=== PATIENT | female | born 1985 | race African-American/Black ===

== ENCOUNTER → 2016-11-12 | Outpatient (CLI) | payer OTHER ==
[~2016-11-12] MED LIST: ANTIVERT/2525 M1 PO; AUGMENTIN 875 M1 TAB PO; CLARITIN10 MG PO; MACROBID100 M1 PO; MOTRIN 800 MG E4 TAB PO; MOTRIN800 MG PO; NKHM PO; OMNICEF300 MG PO; PENICILLIN VK500 MG PO; PRENATAL1 TA3 PO; ULTRAM50 MG PO
== END | disposition home or self-care (01) ==
LOC: US 10:13
DX: Z34.80 Encounter for supervision of other normal pregnancy, unspecified trimester (principal); Z3A.00 Weeks of gestation of pregnancy not specified

== ENCOUNTER → 2017-06-04 | Outpatient (CLI) | payer OTHER ==
--- NOTE | ~2017-06-04 | WRIGHTHP ---
[place], [place] PATIENT HISTORY AND PHYSICAL EXAM NAME: JOSE CARVAJAL [facility] #: [id number] UNIT #: [id number] ROOM: DOCTOR: MARGAUX GAO MD BIRTHDATE: [birth year] DOS: 06/09/2017 DATE OF SURGERY: 06/09/2017. HISTORY OF PRESENT ILLNESS: This is a 32-year-old -[place] female 6, para 5, AB 1, who last delivered on 05/07/2017 in [place] who presented on 05/28/2017, desiring bilateral tubal banding. The patient had signed her 30-day papers at the very end of December and really wants to get proceed with having this done for safety sake and before her children go back to school. Apparently, I performed a bilateral tubal banding on her sister, and her sister done very well, and the patient wants to have the same thing. She does not want a bilateral salpingectomy recommended by [employer] and was fine with that decision. Risks and benefits, indications, potential complications, and alternatives of a laparoscopic bilateral tubal banding were given, understanding stated and the consent signed. PAST MEDICAL HISTORY: Reveals 6 pregnancies and 5 deliveries, 1 and 4 vaginal deliveries as well as one spontaneous . She has history of anxiety, chronic fatigue syndrome and heart palpitations. She has had a history of tubes placed within her ears and . SOCIAL HISTORY: She does not smoke and drinks only socially. ALLERGIES: She has no known allergies. MEDICATIONS: She is taking no medications on a consistent basis. REVIEW OF SYSTEMS: Stable. FAMILY HISTORY: Reveals her father with diabetes. Her mother with hypertension and heart disease. PHYSICAL EXAMINATION: GENERAL: Reveals a delightful female, 5 feet 7, 213 pounds, BMI is 33.4, O2 sat 99%. VITAL SIGNS: Her blood pressure is 134/87. HEENT: Grossly intact. NECK: Grossly intact. LUNGS: Grossly intact. CARDIAC: Grossly intact. BREASTS: Grossly intact. ABDOMEN: Grossly intact. EXTREMITIES: Grossly intact. NEUROLOGIC: Grossly intact. GENITOURINARY: External genitalia, vagina, cervix normal. Most recent Pap negative. Uterus is anteverted and anteflexed. Normal size, configuration, nontender, and mobile. Adnexa negative. RECTAL: Deferred. ASSESSMENT: The patient who desires fertility determination and to that end on [place], [place] PATIENT HISTORY AND PHYSICAL EXAM NAME: JOSE CARVAJAL UNIT #: [id number] ROOM: DOCTOR: MARGAUX GAO MD BIRTHDATE: [birth year] 06/09/2017, she will undergo laparoscopic bilateral tubal banding. MARGAUX GAO MD CM:HISPHYS:PATIENT HISTORY AND PHYSICAL EXAMINATION [id number] MARGAUX GAO MD 06/04/17 1500 interface
[2017-06-04 12:06] LABS: BASO % 0.3 % (0.0-1.0); EOS # 0.1 10*3/uL (0.0-0.4); EOS % 0.7 % (1.0-4.0); HEMATOCRIT 39.6 % (37.0-47.0); HEMOGLOBIN 13.5 g/dl (12.0-16.0); LYMPH # 2.9 10*3/uL (1.3-4.4); LYMPH % 40.3 % (27.0-41.0); MEAN CORPUSCULAR HGB CONC 34.1 g/dl (33.0-37.0); MEAN PLATELET VOLUME 10.8 fl (9.6-12.3); MONO # 0.4 10*3/uL (0.1-1.0); MONO % 5.8 % (3.0-9.0); NEUT # 3.8 10*3/uL (2.3-7.9); NEUT % 52.5 % (47.0-73.0); PLATELET COUNT AUTOMATED 213 10*3/uL (130-400); RED BLOOD COUNT 4.35 10*6/uL (4.10-5.10); RED CELL DISTRI WIDTH 13.1 % (0-14.5); WHITE BLOOD COUNT 7.2 10*3/uL (4.8-10.8)
== END | disposition home or self-care (01) ==
LOC: SDC 11:00 → LAB 13:53 → SDC 06-09 00:51 → EDSTATUS 06-09 11:00 → SDC 06-09 11:00
PROVIDERS: Obstetrics & Gynecology
DX: Z30.09 Encounter for other general counseling and advice on contraception (principal); R79.89 Other specified abnormal findings of blood chemistry

== ENCOUNTER 2017-08-04 12:19 | Emergency (ER) | payer OTHER ==
[~2017-08-04] VITALS: Ht 170.1 cm; Wt 94.3 kg
[2017-08-04] MEDS ORDERED: MAGNESIUM250 M2 PO (12:31)
[2017-08-04] MEDS ORDERED: B12,B-12,B 12500 MC1 PO (12:33)
[2017-08-04 12:57] LABS: BASO % 0.2 % (0.0-1.0); EOS # 0.1 10*3/uL (0.0-0.4); EOS % 1.3 % (1.0-4.0); HEMATOCRIT 40.3 % (37.0-47.0); LYMPH % 32.2 % (27.0-41.0); MEAN CORPUSCULAR HGB 30.2 pg (27.0-31.0); MEAN CORPUSCULAR HGB CONC 34.7 g/dl (33.0-37.0); MEAN PLATELET VOLUME 10.6 fl (9.6-12.3); MONO # 0.3 10*3/uL (0.1-1.0); MONO % 4.3 % (3.0-9.0); NEUT # 3.9 10*3/uL (2.3-7.9); NEUT % 61.8 % (47.0-73.0); PLATELET COUNT AUTOMATED 199 10*3/uL (130-400); RED BLOOD COUNT 4.63 10*6/uL (4.10-5.10); RED CELL DISTRI WIDTH 11.9 % (0-14.5); WHITE BLOOD COUNT 6.3 10*3/uL (4.8-10.8)
[2017-08-04 13:12] LABS: ALBUMIN 3.6 gm/dl (3.1-4.5); ALKALINE PHOSPHATASE 51 U/L (45-117); BUN 9 mg/dl (7-24); CHLORIDE 109 mmol/L (98-107); CREATININE 0.84 mg/dL (0.55-1.02); LIPASE 93 U/L (73-393); POTASSIUM 3.5 mmol/L (3.5-5.1); SGOT/AST 15 IU/L (3-35); SGPT/ALT 24 U/L (12-78); SODIUM 141 mmol/L (136-145); TOTAL PROTEIN 7.3 gm/dL (6.4-8.2)
== END 2017-08-04 15:29 | disposition home or self-care (01) ==
LOC: ED 12:19
PROVIDERS: Physician Assistant
DX: B34.9 Viral infection, unspecified (principal); Z98.890 Other specified postprocedural states

== ENCOUNTER 2017-08-31 11:54 | Emergency (ER) | payer OTHER ==
[~2017-08-31 11:54] MED LIST changes: +B12,B-12,B 12500 MC1 PO; +MAGNESIUM250 M2 PO
[2017-08-31 12:20] LABS: BILIRUBIN NEGATIVE (NEGATIVE); BLOOD TRACE-LYSED (NEGATIVE); CLARITY CLEAR (CLEAR); COLOR YELLOW (YELLOW); GLUCOSE NEGATIVE (NEGATIVE); KETONE NEGATIVE (NEGATIVE); LEUKO ESTERASE NEGATIVE (NEGATIVE); NITRITE NEGATIVE (NEGATIVE); UROBILINOGEN 0.2 E.U./dl (0.2-1.0)
[2017-08-31 12:26] LABS: BASO % 0.4 % (0.0-1.0); EOS % 0.4 % (1.0-4.0); HEMATOCRIT 38.8 % (37.0-47.0); HEMOGLOBIN 13.3 g/dl (12.0-16.0); LYMPH % 36.2 % (27.0-41.0); MEAN CORPUSCULAR HGB 29.5 pg (27.0-31.0); MEAN CORPUSCULAR HGB CONC 34.3 g/dl (33.0-37.0); MEAN PLATELET VOLUME 10.5 fl (9.6-12.3); MONO # 0.3 10*3/uL (0.1-1.0); MONO % 6.2 % (3.0-9.0); NEUT # 3.1 10*3/uL (2.3-7.9); NEUT % 56.6 % (47.0-73.0); PLATELET COUNT AUTOMATED 178 10*3/uL (130-400); RED BLOOD COUNT 4.51 10*6/uL (4.10-5.10); RED CELL DISTRI WIDTH 11.8 % (0-14.5); WHITE BLOOD COUNT 5.5 10*3/uL (4.8-10.8)
[2017-08-31 12:28] LABS: BACTERIA TRACE; RBC 0-2 rbc/hpf (0-2); WBC 0-2 wbc/hpf (0-5)
[2017-08-31 12:43] LABS: ALBUMIN 3.5 gm/dl (3.1-4.5); ALKALINE PHOSPHATASE 45 U/L (45-117); BUN 7 mg/dl (7-24); CHLORIDE 110 mmol/L (98-107); LIPASE 92 U/L (73-393); POTASSIUM 3.4 mmol/L (3.5-5.1); SGOT/AST 12 IU/L (3-35); SGPT/ALT 22 U/L (12-78); SODIUM 142 mmol/L (136-145); TOTAL PROTEIN 6.8 gm/dL (6.4-8.2)
[2017-08-31 12:54] LABS: BETA-HCG, QUANT < 1.0 mIU/mL (1-3)
[2017-08-31] MEDS ORDERED: Zofran4 MG SL (13:21)
== END 2017-08-31 13:40 | disposition home or self-care (01) ==
LOC: ED 11:54
PROVIDERS: Student in an Organized Health Care Education/Training Program
DX: R11.2 Nausea with vomiting, unspecified (principal); Z98.890 Other specified postprocedural states; Z79.899 Other long term (current) drug therapy

== ENCOUNTER 2017-09-02 09:27 | Emergency (ER) | payer OTHER ==
[~2017-09-02] VITALS: Ht 170.1 cm; Wt 79.4 kg
[~2017-09-02 09:27] MED LIST changes: +Zofran4 MG SL
[2017-09-02 10:26] LABS: BASO % 0.4 % (0.0-1.0); EOS % 0.5 % (1.0-4.0); HEMATOCRIT 39.5 % (37.0-47.0); HEMOGLOBIN 13.6 g/dl (12.0-16.0); LYMPH % 35.7 % (27.0-41.0); MEAN CORPUSCULAR HGB 30.3 pg (27.0-31.0); MEAN CORPUSCULAR HGB CONC 34.4 g/dl (33.0-37.0); MEAN PLATELET VOLUME 10.6 fl (9.6-12.3); MONO # 0.3 10*3/uL (0.1-1.0); MONO % 5.2 % (3.0-9.0); NEUT # 3.2 10*3/uL (2.3-7.9); PLATELET COUNT AUTOMATED 178 10*3/uL (130-400); RED BLOOD COUNT 4.49 10*6/uL (4.10-5.10); RED CELL DISTRI WIDTH 11.9 % (0-14.5); WHITE BLOOD COUNT 5.6 10*3/uL (4.8-10.8)
[2017-09-02 10:43] LABS: ALBUMIN 3.6 gm/dl (3.1-4.5); ALKALINE PHOSPHATASE 47 U/L (45-117); BUN 7 mg/dl (7-24); CHLORIDE 109 mmol/L (98-107); CREATININE 0.88 mg/dL (0.55-1.02); POTASSIUM 3.7 mmol/L (3.5-5.1); SGOT/AST 14 IU/L (3-35); SGPT/ALT 26 U/L (12-78); SODIUM 143 mmol/L (136-145)
[2017-09-02] MEDS ORDERED: VISTARIL25 MG PO (10:57)
== END 2017-09-02 11:26 | disposition home or self-care (01) ==
LOC: ED 09:27
PROVIDERS: Nurse Practitioner Family
DX: F41.9 Anxiety disorder, unspecified (principal); Z98.890 Other specified postprocedural states; Z79.899 Other long term (current) drug therapy

== ENCOUNTER 2017-09-05 11:55 | Emergency (ER) | payer OTHER ==
[~2017-09-05] VITALS: Ht 170.1 cm; Wt 94.3 kg
[~2017-09-05 11:55] MED LIST changes: +VISTARIL25 MG PO
[2017-09-05 12:28] LABS: BASO % 0.3 % (0.0-1.0); EOS % 0.3 % (1.0-4.0); HEMATOCRIT 41.9 % (37.0-47.0); HEMOGLOBIN 14.5 g/dl (12.0-16.0); LYMPH # 2.5 10*3/uL (1.3-4.4); LYMPH % 31.6 % (27.0-41.0); MEAN CELL VOLUME 87.1 fl (81.0-99.0); MEAN CORPUSCULAR HGB 30.1 pg (27.0-31.0); MEAN CORPUSCULAR HGB CONC 34.6 g/dl (33.0-37.0); MEAN PLATELET VOLUME 11.1 fl (9.6-12.3); MONO # 0.4 10*3/uL (0.1-1.0); NEUT # 4.9 10*3/uL (2.3-7.9); NEUT % 62.7 % (47.0-73.0); PLATELET COUNT AUTOMATED 201 10*3/uL (130-400); RED BLOOD COUNT 4.81 10*6/uL (4.10-5.10); WHITE BLOOD COUNT 7.8 10*3/uL (4.8-10.8)
[2017-09-05 12:48] LABS: ALBUMIN 3.9 gm/dl (3.1-4.5); ALKALINE PHOSPHATASE 50 U/L (45-117); BUN 7 mg/dl (7-24); CHLORIDE 107 mmol/L (98-107); CREATININE 0.83 mg/dL (0.55-1.02); POTASSIUM 3.6 mmol/L (3.5-5.1); SGOT/AST 13 IU/L (3-35); SGPT/ALT 27 U/L (12-78); SODIUM 140 mmol/L (136-145); TOTAL PROTEIN 7.6 gm/dL (6.4-8.2)
[2017-09-05 12:57] LABS: BILIRUBIN NEGATIVE (NEGATIVE); BLOOD NEGATIVE (NEGATIVE); CLARITY SL CLOUDY (CLEAR); COLOR YELLOW (YELLOW); GLUCOSE NEGATIVE (NEGATIVE); KETONE TRACE (NEGATIVE); LEUKO ESTERASE NEGATIVE (NEGATIVE); NITRITE NEGATIVE (NEGATIVE); UROBILINOGEN 0.2 E.U./dl (0.2-1.0)
[2017-09-05 13:06] LABS: MUCOUS TRACE; RBC 0-2 rbc/hpf (0-2); WBC 0-2 wbc/hpf (0-5)
== END 2017-09-05 14:16 | disposition home or self-care (01) ==
LOC: ED 11:55
PROVIDERS: Emergency Medicine
DX: R53.83 Other fatigue (principal); F41.9 Anxiety disorder, unspecified; R42 Dizziness and giddiness; F10.10 Alcohol abuse, uncomplicated; Z98.890 Other specified postprocedural states; Z79.899 Other long term (current) drug therapy

== ENCOUNTER 2017-09-22 11:28 | Emergency (ER) | payer OTHER ==
[~2017-09-22] VITALS: Ht 170.1 cm; Wt 88.5 kg
--- NOTE | ~2017-09-22 | EKG ---
[place], [place] ELECTROCARDIOGRAM REPORT NAME: JOSE CARVAJAL UNIT #: [id number] ROOM: DOCTOR: SWAPNIL REDMOND MD BIRTHDATE: [birth year] DOS: 09/22/2017 TIME: 12:58. IMPRESSION: 1. Sinus rhythm. 2. Nonspecific ST-T changes. 3. Normal QT interval. SWAPNIL REDMOND MD CM:EKGRPT:ELECTROCARDIOGRAM REPORT [id number] SWAPNIL REDMOND MD
[2017-09-22 12:36] LABS: BILIRUBIN NEGATIVE (NEGATIVE); BLOOD 3+ (NEGATIVE); CLARITY CLEAR (CLEAR); COLOR YELLOW (YELLOW); GLUCOSE NEGATIVE (NEGATIVE); KETONE NEGATIVE (NEGATIVE); LEUKO ESTERASE NEGATIVE (NEGATIVE); NITRITE NEGATIVE (NEGATIVE); PH 5.5 (5.0-9.0); SPECIFIC GRAVITY <= 1.005 (1.005-1.030); UROBILINOGEN 0.2 E.U./dl (0.2-1.0)
[2017-09-22 12:45] LABS: BACTERIA TRACE; WBC 0-2 wbc/hpf (0-5)
[2017-09-22 13:00] LABS: BASO % 0.3 % (0.0-1.0); EOS % 0.3 % (1.0-4.0); HEMATOCRIT 41.3 % (37.0-47.0); HEMOGLOBIN 14.1 g/dl (12.0-16.0); LYMPH # 1.7 10*3/uL (1.3-4.4); LYMPH % 25.9 % (27.0-41.0); MEAN CELL VOLUME 87.1 fl (81.0-99.0); MEAN CORPUSCULAR HGB 29.7 pg (27.0-31.0); MEAN CORPUSCULAR HGB CONC 34.1 g/dl (33.0-37.0); MEAN PLATELET VOLUME 10.9 fl (9.6-12.3); MONO # 0.3 10*3/uL (0.1-1.0); MONO % 5.2 % (3.0-9.0); NEUT # 4.5 10*3/uL (2.3-7.9); NEUT % 68.1 % (47.0-73.0); PLATELET COUNT AUTOMATED 221 10*3/uL (130-400); RED BLOOD COUNT 4.74 10*6/uL (4.10-5.10); RED CELL DISTRI WIDTH 11.9 % (0-14.5); WHITE BLOOD COUNT 6.6 10*3/uL (4.8-10.8)
[2017-09-22 13:15] LABS: ACT PARTIAL THROMBO TIME 26.3 SECONDS (20.8-31.5)
[2017-09-22 13:19] LABS: ALBUMIN 3.8 gm/dl (3.1-4.5); ALKALINE PHOSPHATASE 52 U/L (45-117); BUN 9 mg/dl (7-24); CHLORIDE 108 mmol/L (98-107); LIPASE 109 U/L (73-393); POTASSIUM 3.8 mmol/L (3.5-5.1); SGOT/AST 10 IU/L (3-35); SGPT/ALT 20 U/L (12-78); SODIUM 141 mmol/L (136-145); TOTAL PROTEIN 7.5 gm/dL (6.4-8.2)
[2017-09-22 13:26] LABS: BETA-HCG, QUANT < 1.0 mIU/mL (1-3); TROPONIN I < 0.015 ng/ml (<0.045)
[2017-09-23] MEDS ORDERED: BUSPIRONE HCL7.5 MG PO (22:43)
[2017-09-23] MEDS ORDERED: ATIVAN0.5 MG PO (22:44)
== END 2017-09-22 18:10 | disposition home or self-care (01) ==
LOC: ED 11:28
PROVIDERS: Emergency Medicine
DX: E86.0 Dehydration (principal); F41.9 Anxiety disorder, unspecified; F10.10 Alcohol abuse, uncomplicated; Z79.899 Other long term (current) drug therapy

== ENCOUNTER 2017-09-23 16:55 | Inpatient (IN) | payer OTHER ==
[~2017-09-23] VITALS: Ht 170.1 cm; Wt 90.0 kg
--- NOTE | ~2017-09-23 | EKG ---
[place], [place] ELECTROCARDIOGRAM REPORT NAME: JOSE CARVAJAL UNIT #: [id number] ROOM: 516 DOCTOR: NYLA RESTREPO,SWAPNIL BIRTHDATE: [birth year] DOS: 09/23/2017 TIME: 1748 hours. IMPRESSION: 1. Sinus rhythm. 2. Normal QT interval. SWAPNIL REDMOND MD CM:EKGRPT:ELECTROCARDIOGRAM REPORT [id number] SWAPNIL REDMOND MD
--- NOTE | ~2017-09-23 | CON ---
[place], [place] REPORT OF CONSULTATION NAME: JOSE CARVAJAL UNIT #: [id number] ROOM: 516 DOCTOR: ADDIS ARREOLA MD BIRTHDATE: [birth year] DOS: 09/24/2017 CHIEF COMPLAINT: "I was in and out. I was not feeling very well." HISTORY OF PRESENT ILLNESS: This is a 32-year-old black female who was admitted now due to increased lightheadedness on and off for the last several days. The patient was seen in the emergency room and treated for dehydration. The patient returned later in the day with similar symptoms and was admitted then to the hospital to further workup this somatic complaint. The patient reports that she started on BuSpar approximately 1 month ago for overriding anxiety and was recently switched to Ativan approximately 1 week prior to this admission. She states that she was told that she can take both medicines, but was only taking the Ativan sporadically, but felt that it was also making her excessively sedate and lethargic. She reports that she was having trouble concentrating and was in and out. She notes that even with BuSpar, she was having significant somatic issues and it was not effectively controlling her anxiety. PAST MEDICAL HISTORY: Remarkable for obesity, hematuria, hyperkalemia and dizziness of unknown origin. MENTAL STATUS: The patient is alert and oriented times 3. Mood is relatively euthymic with anxious overtones. She endorses multiple symptoms of anxiety both free riding anxiety as well as panic attacks. There is no lenora or hypomania. There are no overt auditory or visual hallucinations, delusions or paranoia. Memory is intact. DIAGNOSES: Generalized anxiety disorder and panic disorder. PLAN: At this point in time, I would not utilize Ativan, Vistaril or BuSpar as she reports significant side effects from these agents. I talked to her at length about starting Cymbalta, describing the risk, benefit ratio and she is in agreement to try. I will order Cymbalta 30 mg at bedtime and suggest that she follow up with her outpatient provider, which is [facility]. Should you have further questions in the future, feel free to contact me at any time. ADDIS ARREOLA MD CM:CONSTR:REPORT OF CONSULTATION 0946 09/24/17 1014 interface
[2017-09-23 17:13] VITALS: BP 111/67
[2017-09-23 17:55] LABS: BASO % 0.5 % (0.0-1.0); EOS # 0.1 10*3/uL (0.0-0.4); EOS % 1.4 % (1.0-4.0); HEMATOCRIT 37.3 % (37.0-47.0); HEMOGLOBIN 12.8 g/dl (12.0-16.0); LYMPH # 2.7 10*3/uL (1.3-4.4); MEAN CELL VOLUME 86.7 fl (81.0-99.0); MEAN CORPUSCULAR HGB 29.8 pg (27.0-31.0); MEAN CORPUSCULAR HGB CONC 34.3 g/dl (33.0-37.0); MEAN PLATELET VOLUME 10.8 fl (9.6-12.3); MONO # 0.3 10*3/uL (0.1-1.0); MONO % 5.1 % (3.0-9.0); NEUT # 3.3 10*3/uL (2.3-7.9); NEUT % 50.8 % (47.0-73.0); PLATELET COUNT AUTOMATED 210 10*3/uL (130-400); RED CELL DISTRI WIDTH 12.1 % (0-14.5); WHITE BLOOD COUNT 6.5 10*3/uL (4.8-10.8)
[2017-09-23 18:06] LABS: ACT PARTIAL THROMBO TIME 26.7 SECONDS (20.8-31.5)
[2017-09-23 18:12] LABS: ALBUMIN 3.4 gm/dl (3.1-4.5); ALKALINE PHOSPHATASE 50 U/L (45-117); BUN 7 mg/dl (7-24); CHLORIDE 110 mmol/L (98-107); CREATININE 0.78 mg/dL (0.55-1.02); LIPASE 134 U/L (73-393); POTASSIUM 3.6 mmol/L (3.5-5.1); SGOT/AST 13 IU/L (3-35); SGPT/ALT 21 U/L (12-78); SODIUM 144 mmol/L (136-145); TOTAL PROTEIN 6.8 gm/dL (6.4-8.2); TROPONIN I < 0.015 ng/ml (<0.045)
--- NOTE | 2017-09-23 21:41 | NUR ---
CALLED TO GIVE REPORT TO DAMARIS BRO, ADVISED WILL HAVE TO CALL BACK.
[2017-09-23 22:15] VITALS: BP 125/70; BP 128/70
--- NOTE | 2017-09-23 22:15 | NUR ---
Time: 2214 A 32 year old FEMALE admitted to 5E under services of KWASI ZAMORA DO. Pt. arrived via wheel chair from ER. Chief complaint: TIREDNESS,DISORIENTED,NAUSEA,LIGHTHEADED,AND HEARING ECHOES WHEN SOMEONE IS TALKING. DAMARIS KAY
--- NOTE | 2017-09-23 22:30 | NUR ---
Patient refused the flu vaccine and also the pneumonia vaccine.
[2017-09-23] MEDS ORDERED: BUSPIRONE HCL7.5 MG PO (22:43)
[2017-09-23] MEDS ORDERED: ATIVAN0.5 MG PO (22:44)
--- NOTE | 2017-09-23 22:44 | NUR ---
Medication reconciliation updated and verified with patient. Patient is alert and oriented x3. Was able to tell nurse the medication,dosage and when to take the medications.
[2017-09-24 00:04] VITALS: BP 104/59
--- NOTE | 2017-09-24 01:00 | NUR ---
24 HR chart check completed.
--- NOTE | 2017-09-24 06:40 | NUR ---
Called Dr. Bowling's cell phone and left a message on voice mail.
--- NOTE | 2017-09-24 06:43 | NUR ---
Dr. Bowling called in and was notified of consult. He said he would see her later today. No new orders given at this time.
[2017-09-24 06:59] LABS: BASO % 0.2 % (0.0-1.0); EOS # 0.1 10*3/uL (0.0-0.4); EOS % 1.5 % (1.0-4.0); HEMATOCRIT 37.7 % (37.0-47.0); HEMOGLOBIN 12.6 g/dl (12.0-16.0); LYMPH # 2.6 10*3/uL (1.3-4.4); LYMPH % 47.6 % (27.0-41.0); MEAN CELL VOLUME 87.5 fl (81.0-99.0); MEAN CORPUSCULAR HGB 29.2 pg (27.0-31.0); MEAN CORPUSCULAR HGB CONC 33.4 g/dl (33.0-37.0); MEAN PLATELET VOLUME 10.8 fl (9.6-12.3); MONO # 0.3 10*3/uL (0.1-1.0); MONO % 4.6 % (3.0-9.0); NEUT # 2.5 10*3/uL (2.3-7.9); NEUT % 45.9 % (47.0-73.0); PLATELET COUNT AUTOMATED 204 10*3/uL (130-400); RED BLOOD COUNT 4.31 10*6/uL (4.10-5.10); RED CELL DISTRI WIDTH 12.1 % (0-14.5); WHITE BLOOD COUNT 5.4 10*3/uL (4.8-10.8)
[2017-09-24 07:18] LABS: ALBUMIN 3.2 gm/dl (3.1-4.5); BUN 7 mg/dl (7-24); CHLORIDE 113 mmol/L (98-107); CREATININE 0.68 mg/dL (0.55-1.02); POTASSIUM 3.6 mmol/L (3.5-5.1); SGOT/AST 9 IU/L (3-35); SGPT/ALT 18 U/L (12-78); SODIUM 143 mmol/L (136-145)
[2017-09-24 07:25] LABS: ALKALINE PHOSPHATASE 44 U/L (45-117); CHOLESTEROL 171 mg/dL (<200); HDL CHOLESTEROL 43 mg/dl (40-60); LDL CHOLESTEROL 112 mg/dL (9-159); PHOSPHOROUS 3.6 mg/dL (2.5-4.9); TOTAL PROTEIN 6.4 gm/dL (6.4-8.2); TRIGLYCERIDES 82 mg/dl (<150); VLDL CHOLESTEROL 16 mg/dL (6-40)
[2017-09-24 08:00] VITALS: BP 109/68
--- NOTE | 2017-09-24 09:00 | NUR ---
[employer] Technical Assistant in to talk to patient. Patient states lives at home with children. There are few steps in the home. Physician: [facility]acy: [facility] Home health services: none Patient's level of ADLs: INDEPENDENT Patient has working utilities: all working DME: none Follow-up physician's appointment after d/c: will be made by hospitalist nurse director upon discharge Does patient want to access PORTAL?: no Discharge plan discussed with patient, patient lives at home with children, is independent in adls and ambulation, patient states she will be going home when able and denies any home needs. CLARK MARQUEZ
--- NOTE | 2017-09-24 09:06 | NUR ---
TRIED MULTIPLE TIMES TO CALL PATIENTS HOME PHARMACY, [facility] TO VERIFY MEDICATIONS BUT THE LINE WAS BUSY. WILL FOLLOW UP.
[2017-09-24 12:00] VITALS: BP 116/71
[2017-09-24 16:00] VITALS: BP 110/76
[2017-09-24 20:00] VITALS: BP 128/71
[2017-09-25] VITALS: BP 106/51
--- NOTE | 2017-09-25 00:50 | NUR ---
24 HR chart check completed.
[2017-09-25 08:00] VITALS: BP 125/72
--- NOTE | 2017-09-25 09:00 | NUR ---
case mangement visits with patient, patient denies any home needs at this time
--- NOTE | 2017-09-25 11:45 | NUR ---
patient called case management wanting home health nursing to see her, given choice of companies, patient chose [facility], called and talked with Avelina from [facility], planner/scheduler will send patient's information and [facility] will see her at home
[2017-09-25 12:00] VITALS: BP 128/65
--- NOTE | 2017-09-25 13:48 | NUR ---
PRN TYLENOL GIVEN FOR PT REPORT 5/10 HEADACHE.
--- NOTE | 2017-09-25 14:48 | NUR ---
PRN PAIN MED EFFECTIVE, PT RATES HEADACHE 3/10.
--- NOTE | 2017-09-25 14:59 | NUR ---
Patient requested visiting nurse to check on her upon discharge, agreed to [facility]. Received order and faxed clincals.
[2017-09-25 16:00] VITALS: BP 123/62
[2017-09-25] MEDS ORDERED: DULOXETINE HCL30 MG PO (17:39)
[2017-09-25] MEDS ORDERED: ZITHROMAX250 MG PO (17:39)
[2017-09-25] MEDS ORDERED: VITAMIN D-32000 UNIT PO (17:39)
--- NOTE | 2017-09-25 18:44 | NUR ---
Discharge instructions reviewed with patient/family. Patient receptive and verbalizes understanding. Follow-up care arranged. Written instructions given to patient/family. BINTA ALMANZA
== END 2017-09-25 18:44 | disposition home health service (06) | DRG 153 ==
LOC: ED 16:55 → EDHOLD 21:22 → 5E 21:22
PROVIDERS: Family Medicine; Nurse Practitioner Family; ADMIT Student in an Organized Health Care Education/Training Program
DX: H66.003 Acute suppurative otitis media without spontaneous rupture of ear drum, bilateral (principal); E87.8 Other disorders of electrolyte and fluid balance, not elsewhere classified; R31.9 Hematuria, unspecified; E66.09 Other obesity due to excess calories; F41.1 Generalized anxiety disorder; F41.0 Panic disorder [episodic paroxysmal anxiety]; E55.9 Vitamin D deficiency, unspecified; E86.0 Dehydration; Z79.899 Other long term (current) drug therapy; Z87.440 Personal history of urinary (tract) infections; Z72.89 Other problems related to lifestyle; Z68.31 Body mass index [BMI] 31.0-31.9, adult; Z83.3 Family history of diabetes mellitus; Z82.49 Family history of ischemic heart disease and other diseases of the circulatory system

== ENCOUNTER 2017-10-08 10:24 | Emergency (ER) | payer OTHER ==
[~2017-10-08] VITALS: Ht 170.1 cm; Wt 89.4 kg
[~2017-10-08 10:24] MED LIST changes: +ATIVAN0.5 MG PO; +BUSPIRONE HCL7.5 MG PO; +DULOXETINE HCL30 MG PO; +VITAMIN D-32000 UNIT PO; +ZITHROMAX250 MG PO
[2017-10-08] MEDS ORDERED: ATIVAN0.5 MG PO (10:32)
[2017-10-08 11:10] LABS: BASO % 0.3 % (0.0-1.0); EOS % 0.3 % (1.0-4.0); HEMATOCRIT 37.1 % (37.0-47.0); HEMOGLOBIN 12.9 g/dl (12.0-16.0); LYMPH # 2.3 10*3/uL (1.3-4.4); LYMPH % 37.2 % (27.0-41.0); MEAN CELL VOLUME 85.9 fl (81.0-99.0); MEAN CORPUSCULAR HGB 29.9 pg (27.0-31.0); MEAN CORPUSCULAR HGB CONC 34.8 g/dl (33.0-37.0); MEAN PLATELET VOLUME 11.5 fl (9.6-12.3); MONO # 0.4 10*3/uL (0.1-1.0); MONO % 6.3 % (3.0-9.0); NEUT # 3.5 10*3/uL (2.3-7.9); NEUT % 55.6 % (47.0-73.0); PLATELET COUNT AUTOMATED 188 10*3/uL (130-400); RED BLOOD COUNT 4.32 10*6/uL (4.10-5.10); RED CELL DISTRI WIDTH 12.3 % (0-14.5); WHITE BLOOD COUNT 6.2 10*3/uL (4.8-10.8)
[2017-10-08 12:00] LABS: ALBUMIN 3.4 gm/dl (3.1-4.5); ALKALINE PHOSPHATASE 50 U/L (45-117); BUN 8 mg/dl (7-24); CHLORIDE 108 mmol/L (98-107); CREATININE 0.78 mg/dL (0.55-1.02); POTASSIUM 3.5 mmol/L (3.5-5.1); SGOT/AST 12 IU/L (3-35); SGPT/ALT 23 U/L (12-78); SODIUM 141 mmol/L (136-145)
[2017-10-08 12:01] LABS: BILIRUBIN NEGATIVE (NEGATIVE); BLOOD NEGATIVE (NEGATIVE); CLARITY SL CLOUDY (CLEAR); COLOR YELLOW (YELLOW); GLUCOSE NEGATIVE (NEGATIVE); KETONE NEGATIVE (NEGATIVE); LEUKO ESTERASE NEGATIVE (NEGATIVE); NITRITE NEGATIVE (NEGATIVE); SPECIFIC GRAVITY <= 1.005 (1.005-1.030); UROBILINOGEN 0.2 E.U./dl (0.2-1.0)
[2017-10-08 12:01] LABS: B-hCG (QUALITATIVE) NEGATIVE (NEGATIVE); TROPONIN I < 0.015 ng/ml (<0.045)
[2017-10-08 12:07] LABS: URINE AMPHETAMINES < 1000 (1000ng/ml); URINE BARBITURATES < 200 (200ng/ml); URINE BENZODIAZEPINES < 200 (200ng/ml); URINE CANNABINOIDS (THC) < 50 (50ng/ml); URINE COCAINE < 300 (300ng/ml); URINE METHADONE < 300 (300ng/ml); URINE OPIATES < 300 (300ng/ml)
[2017-10-08 12:09] LABS: URINE PHENCYCLIDINE < 25 (25ng/ml)
[2017-10-08 12:13] LABS: BACTERIA 1+
== END 2017-10-08 13:41 | disposition home or self-care (01) ==
LOC: ED 10:24
PROVIDERS: Physician Assistant
DX: F41.9 Anxiety disorder, unspecified (principal); R00.0 Tachycardia, unspecified; Z98.890 Other specified postprocedural states; Z79.899 Other long term (current) drug therapy

== ENCOUNTER 2017-10-19 04:26 | Emergency (ER) | payer OTHER ==
[~2017-10-19] VITALS: Ht 170.1 cm; Wt 89.4 kg
[2017-10-19 05:00] LABS: BASO % 0.4 % (0.0-1.0); EOS # 0.3 10*3/uL (0.0-0.4); EOS % 3.8 % (1.0-4.0); HEMATOCRIT 40.3 % (37.0-47.0); HEMOGLOBIN 13.6 g/dl (12.0-16.0); LYMPH # 2.8 10*3/uL (1.3-4.4); LYMPH % 39.6 % (27.0-41.0); MEAN CELL VOLUME 88.6 fl (81.0-99.0); MEAN CORPUSCULAR HGB 29.9 pg (27.0-31.0); MEAN CORPUSCULAR HGB CONC 33.7 g/dl (33.0-37.0); MEAN PLATELET VOLUME 10.8 fl (9.6-12.3); MONO # 0.4 10*3/uL (0.1-1.0); MONO % 5.8 % (3.0-9.0); NEUT # 3.5 10*3/uL (2.3-7.9); NEUT % 50.3 % (47.0-73.0); PLATELET COUNT AUTOMATED 202 10*3/uL (130-400); RED BLOOD COUNT 4.55 10*6/uL (4.10-5.10); RED CELL DISTRI WIDTH 12.8 % (0-14.5)
[2017-10-19 05:01] LABS: BILIRUBIN NEGATIVE (NEGATIVE); BLOOD 3+ (NEGATIVE); CLARITY CLOUDY (CLEAR); COLOR YELLOW (YELLOW); GLUCOSE NEGATIVE (NEGATIVE); KETONE TRACE (NEGATIVE); LEUKO ESTERASE 1+ (NEGATIVE); NITRITE NEGATIVE (NEGATIVE); PH 5.5 (5.0-9.0); SPECIFIC GRAVITY 1.025 (1.005-1.030); UROBILINOGEN 0.2 E.U./dl (0.2-1.0)
[2017-10-19 05:03] LABS: ALBUMIN 3.7 gm/dl (3.1-4.5); ALKALINE PHOSPHATASE 59 U/L (45-117); BUN 11 mg/dl (7-24); CHLORIDE 108 mmol/L (98-107); CREATININE 0.82 mg/dL (0.55-1.02); POTASSIUM 3.7 mmol/L (3.5-5.1); SGOT/AST 21 IU/L (3-35); SGPT/ALT 27 U/L (12-78); SODIUM 142 mmol/L (136-145); TOTAL PROTEIN 7.1 gm/dL (6.4-8.2)
[2017-10-19 05:10] LABS: BACTERIA 4+; EPITHELIAL CELLS 50-55; RBC 31-40 rbc/hpf (0-2); URINE AMPHETAMINES < 1000 (1000ng/ml); URINE BARBITURATES < 200 (200ng/ml); URINE BENZODIAZEPINES < 200 (200ng/ml); URINE CANNABINOIDS (THC) < 50 (50ng/ml); URINE COCAINE < 300 (300ng/ml); URINE METHADONE < 300 (300ng/ml); URINE OPIATES < 300 (300ng/ml); WBC 31-40 wbc/hpf (0-5)
[2017-10-19 05:12] LABS: URINE PHENCYCLIDINE < 25 (25ng/ml)
[2017-10-19] MEDS ORDERED: ATIVAN0.5 MG PO (06:40)
== END 2017-10-19 06:42 | disposition home or self-care (01) ==
LOC: ED 04:26
PROVIDERS: Emergency Medicine Emergency Medical Services
DX: F41.0 Panic disorder [episodic paroxysmal anxiety] (principal); Z79.899 Other long term (current) drug therapy

== ENCOUNTER 2017-10-21 09:51 | Emergency (ER) | payer OTHER ==
[~2017-10-21] VITALS: Ht 170.1 cm; Wt 89.4 kg
[2017-10-21 10:19] LABS: BASO % 0.3 % (0.0-1.0); EOS % 0.4 % (1.0-4.0); HEMATOCRIT 38.8 % (37.0-47.0); HEMOGLOBIN 13.2 g/dl (12.0-16.0); LYMPH # 1.6 10*3/uL (1.3-4.4); LYMPH % 23.9 % (27.0-41.0); MEAN CELL VOLUME 87.4 fl (81.0-99.0); MEAN CORPUSCULAR HGB 29.7 pg (27.0-31.0); MEAN PLATELET VOLUME 10.4 fl (9.6-12.3); MONO # 0.5 10*3/uL (0.1-1.0); MONO % 7.9 % (3.0-9.0); NEUT # 4.5 10*3/uL (2.3-7.9); NEUT % 67.2 % (47.0-73.0); PLATELET COUNT AUTOMATED 199 10*3/uL (130-400); RED BLOOD COUNT 4.44 10*6/uL (4.10-5.10); RED CELL DISTRI WIDTH 12.8 % (0-14.5); WHITE BLOOD COUNT 6.7 10*3/uL (4.8-10.8)
[2017-10-21 10:29] LABS: BILIRUBIN NEGATIVE (NEGATIVE); BLOOD 2+ (NEGATIVE); CLARITY CLEAR (CLEAR); COLOR YELLOW (YELLOW); GLUCOSE NEGATIVE (NEGATIVE); KETONE NEGATIVE (NEGATIVE); LEUKO ESTERASE NEGATIVE (NEGATIVE); NITRITE NEGATIVE (NEGATIVE); PH 5.5 (5.0-9.0); SPECIFIC GRAVITY <= 1.005 (1.005-1.030); UROBILINOGEN 0.2 E.U./dl (0.2-1.0)
[2017-10-21 10:32] LABS: BUN 8 mg/dl (7-24); CHLORIDE 108 mmol/L (98-107); CREATININE 0.75 mg/dL (0.55-1.02); POTASSIUM 3.6 mmol/L (3.5-5.1); SODIUM 138 mmol/L (136-145)
[2017-10-21 10:33] LABS: ACETAMINOPHEN (TYLENOL) < 2.0 ug/ml (10-30); ETHYL ALCOHOL < 3.0 mg/dl (<3)
[2017-10-21 10:37] LABS: URINE AMPHETAMINES < 1000 (1000ng/ml); URINE BARBITURATES < 200 (200ng/ml); URINE BENZODIAZEPINES < 200 (200ng/ml); URINE CANNABINOIDS (THC) < 50 (50ng/ml); URINE COCAINE < 300 (300ng/ml); URINE METHADONE < 300 (300ng/ml); URINE OPIATES < 300 (300ng/ml); URINE PHENCYCLIDINE < 25 (25ng/ml)
[2017-10-21 10:38] LABS: BACTERIA TRACE; EPITHELIAL CELLS 0-2; WBC 0-2 wbc/hpf (0-5)
== END 2017-10-21 14:13 | disposition home or self-care (01) ==
LOC: ED 09:51
PROVIDERS: Emergency Medicine
DX: F32.9 Major depressive disorder, single episode, unspecified (principal); Z79.899 Other long term (current) drug therapy

== ENCOUNTER → 2017-10-30 | Outpatient (CLI) | payer OTHER ==
[2017-10-30 09:51] LABS: BASO % 0.4 % (0.0-1.0); EOS % 0.6 % (1.0-4.0); HEMATOCRIT 38.6 % (37.0-47.0); HEMOGLOBIN 13.1 g/dl (12.0-16.0); LYMPH # 2.8 10*3/uL (1.3-4.4); LYMPH % 42.3 % (27.0-41.0); MEAN CELL VOLUME 88.3 fl (81.0-99.0); MEAN CORPUSCULAR HGB CONC 33.9 g/dl (33.0-37.0); MEAN PLATELET VOLUME 10.6 fl (9.6-12.3); MONO # 0.3 10*3/uL (0.1-1.0); MONO % 4.8 % (3.0-9.0); NEUT # 3.5 10*3/uL (2.3-7.9); NEUT % 51.8 % (47.0-73.0); PLATELET COUNT AUTOMATED 258 10*3/uL (130-400); RED BLOOD COUNT 4.37 10*6/uL (4.10-5.10); RED CELL DISTRI WIDTH 12.6 % (0-14.5); WHITE BLOOD COUNT 6.7 10*3/uL (4.8-10.8)
[2017-10-30 10:04] LABS: ALBUMIN 3.6 gm/dl (3.1-4.5); BUN 9 mg/dl (7-24); CHLORIDE 104 mmol/L (98-107); CHOLESTEROL 180 mg/dL (<200); POTASSIUM 3.7 mmol/L (3.5-5.1); SGOT/AST 14 IU/L (3-35); SGPT/ALT 23 U/L (12-78); SODIUM 138 mmol/L (136-145); T3 UPTAKE 37 % (31-39); THYROXINE (T4) TOTAL 8.1 ug/dl (4.8-13.9); TOTAL PROTEIN 7.2 gm/dL (6.4-8.2); TRIGLYCERIDES 78 mg/dl (<150); VLDL CHOLESTEROL 16 mg/dL (6-40)
[2017-10-30 10:05] LABS: ALKALINE PHOSPHATASE 56 U/L (45-117); HDL CHOLESTEROL 54 mg/dl (40-60); LDL CHOLESTEROL 110 mg/dL (9-159)
== END | disposition home or self-care (01) ==
LOC: LAB 09:17
PROVIDERS: Internal Medicine
DX: I10 Essential (primary) hypertension (principal); E78.2 Mixed hyperlipidemia; E03.9 Hypothyroidism, unspecified; E55.9 Vitamin D deficiency, unspecified; D51.0 Vitamin B12 deficiency anemia due to intrinsic factor deficiency; D51.1 Vitamin B12 deficiency anemia due to selective vitamin B12 malabsorption with proteinuria

== ENCOUNTER 2017-11-06 09:33 | Emergency (ER) | payer OTHER ==
[~2017-11-06] VITALS: Ht 170.1 cm; Wt 86.2 kg
[2017-11-06] MEDS ORDERED: AMOXICILLIN500 M2 PO (09:54)
[2017-11-06] MEDS ORDERED: DIFLUCAN150 MG PO (09:54)
== END 2017-11-06 09:59 | disposition home or self-care (01) ==
LOC: ED 09:33
DX: H66.92 Otitis media, unspecified, left ear (principal); R05 Cough; J02.9 Acute pharyngitis, unspecified; Z79.899 Other long term (current) drug therapy

== ENCOUNTER 2017-12-21 10:58 | Emergency (ER) | payer OTHER ==
[~2017-12-21 10:58] MED LIST changes: +AMOXICILLIN500 M2 PO; +DIFLUCAN150 MG PO
[2017-12-21 11:51] LABS: BASO % 0.3 % (0.0-1.0); EOS % 0.3 % (1.0-4.0); HEMATOCRIT 38.6 % (37.0-47.0); HEMOGLOBIN 12.8 g/dl (12.0-16.0); LYMPH # 1.7 10*3/uL (1.3-4.4); LYMPH % 29.7 % (27.0-41.0); MEAN CELL VOLUME 89.1 fl (81.0-99.0); MEAN CORPUSCULAR HGB 29.6 pg (27.0-31.0); MEAN CORPUSCULAR HGB CONC 33.2 g/dl (33.0-37.0); MEAN PLATELET VOLUME 10.9 fl (9.6-12.3); MONO # 0.3 10*3/uL (0.1-1.0); MONO % 5.6 % (3.0-9.0); NEUT # 3.7 10*3/uL (2.3-7.9); NEUT % 63.9 % (47.0-73.0); PLATELET COUNT AUTOMATED 179 10*3/uL (130-400); RED BLOOD COUNT 4.33 10*6/uL (4.10-5.10); RED CELL DISTRI WIDTH 12.5 % (0-14.5); WHITE BLOOD COUNT 5.9 10*3/uL (4.8-10.8)
[2017-12-21 11:56] LABS: BILIRUBIN NEGATIVE (NEGATIVE); BLOOD NEGATIVE (NEGATIVE); CLARITY SL CLOUDY (CLEAR); COLOR YELLOW (YELLOW); GLUCOSE NEGATIVE (NEGATIVE); KETONE NEGATIVE (NEGATIVE); LEUKO ESTERASE NEGATIVE (NEGATIVE); NITRITE NEGATIVE (NEGATIVE)
[2017-12-21 12:07] LABS: ALBUMIN 3.3 gm/dl (3.1-4.5); ALKALINE PHOSPHATASE 48 U/L (45-117); BUN 11 mg/dl (7-24); CHLORIDE 107 mmol/L (98-107); CREATININE 0.78 mg/dL (0.55-1.02); POTASSIUM 3.8 mmol/L (3.5-5.1); SGOT/AST 10 IU/L (3-35); SGPT/ALT 19 U/L (12-78); SODIUM 141 mmol/L (136-145); TOTAL PROTEIN 6.6 gm/dL (6.4-8.2)
[2017-12-21 12:07] LABS: BACTERIA TRACE; RBC 0-2 rbc/hpf (0-2)
[2017-12-21 12:09] LABS: BETA-HCG, QUANT < 1.0 mIU/mL (1-3); TROPONIN I < 0.015 ng/ml (<0.045)
== END 2017-12-21 12:40 | disposition home or self-care (01) ==
LOC: ED 10:58
PROVIDERS: Student in an Organized Health Care Education/Training Program
DX: R00.2 Palpitations (principal); F41.9 Anxiety disorder, unspecified; E78.00 Pure hypercholesterolemia, unspecified; Z79.899 Other long term (current) drug therapy

== ENCOUNTER 2018-02-21 08:16 | Inpatient (IN) | payer OTHER ==
[~2018-02-21] VITALS: Ht 170.1 cm; Wt 92.7 kg
[2018-02-21 08:17] VITALS: BP 114/71
[2018-02-21 08:57] LABS: BASO % 0.3 % (0.0-1.0); EOS # 0.1 10*3/uL (0.0-0.4); HEMATOCRIT 37.7 % (37.0-47.0); HEMOGLOBIN 12.7 g/dl (12.0-16.0); LYMPH # 2.6 10*3/uL (1.3-4.4); LYMPH % 42.6 % (27.0-41.0); MEAN CELL VOLUME 88.9 fl (81.0-99.0); MEAN CORPUSCULAR HGB CONC 33.7 g/dl (33.0-37.0); MONO # 0.3 10*3/uL (0.1-1.0); MONO % 4.3 % (3.0-9.0); NEUT # 3.1 10*3/uL (2.3-7.9); NEUT % 51.6 % (47.0-73.0); PLATELET COUNT AUTOMATED 177 10*3/uL (130-400); RED BLOOD COUNT 4.24 10*6/uL (4.10-5.10); RED CELL DISTRI WIDTH 13.1 % (0-14.5)
[2018-02-21 09:06] LABS: ACT PARTIAL THROMBO TIME 24.4 SECONDS (20.8-31.5); INTERNATIONAL NORM RATIO 0.9 (2.0-3.5)
[2018-02-21 09:13] LABS: ALBUMIN 3.3 gm/dl (3.1-4.5); ALKALINE PHOSPHATASE 49 U/L (45-117); BUN 11 mg/dl (7-24); CHLORIDE 107 mmol/L (98-107); CREATININE 0.76 mg/dL (0.55-1.02); POTASSIUM 3.7 mmol/L (3.5-5.1); SGOT/AST 11 IU/L (3-35); SGPT/ALT 19 U/L (12-78); SODIUM 141 mmol/L (136-145); TOTAL PROTEIN 6.5 gm/dL (6.4-8.2)
[2018-02-21 09:16] LABS: TROPONIN I < 0.015 ng/ml (<0.045)
[2018-02-21 10:11] VITALS: BP 113/69
[2018-02-21 10:43] LABS: BILIRUBIN NEGATIVE (NEGATIVE); BLOOD 2+ (NEGATIVE); CLARITY SL CLOUDY (CLEAR); COLOR YELLOW (YELLOW); GLUCOSE NEGATIVE (NEGATIVE); KETONE NEGATIVE (NEGATIVE); LEUKO ESTERASE NEGATIVE (NEGATIVE); NITRITE NEGATIVE (NEGATIVE); PH 6.5 (5.0-9.0); SPECIFIC GRAVITY <= 1.005 (1.005-1.030); UROBILINOGEN 0.2 E.U./dl (0.2-1.0)
[2018-02-21 11:16] LABS: BACTERIA TRACE
[2018-02-21 11:51] VITALS: BP 118/60; BP 118/66
[2018-02-21 12:20] VITALS: BP 128/64
[2018-02-21 16:00] VITALS: BP 117/62
[2018-02-21 20:00] VITALS: BP 105/63
[2018-02-22] VITALS: BP 97/55
[2018-02-22 07:41] LABS: BASO % 0.3 % (0.0-1.0); EOS # 0.1 10*3/uL (0.0-0.4); EOS % 2.3 % (1.0-4.0); HEMATOCRIT 37.5 % (37.0-47.0); HEMOGLOBIN 12.1 g/dl (12.0-16.0); LYMPH # 2.8 10*3/uL (1.3-4.4); LYMPH % 47.9 % (27.0-41.0); MEAN CELL VOLUME 90.8 fl (81.0-99.0); MEAN CORPUSCULAR HGB 29.3 pg (27.0-31.0); MEAN CORPUSCULAR HGB CONC 32.3 g/dl (33.0-37.0); MEAN PLATELET VOLUME 10.6 fl (9.6-12.3); MONO # 0.3 10*3/uL (0.1-1.0); MONO % 4.3 % (3.0-9.0); NEUT # 2.6 10*3/uL (2.3-7.9); NEUT % 45.2 % (47.0-73.0); PLATELET COUNT AUTOMATED 184 10*3/uL (130-400); RED BLOOD COUNT 4.13 10*6/uL (4.10-5.10); RED CELL DISTRI WIDTH 13.1 % (0-14.5); WHITE BLOOD COUNT 5.8 10*3/uL (4.8-10.8)
[2018-02-22 07:50] LABS: ACT PARTIAL THROMBO TIME 25.2 SECONDS (20.8-31.5)
[2018-02-22 08:00] VITALS: BP 107/59
[2018-02-22 08:25] LABS: ALBUMIN 2.9 gm/dl (3.1-4.5); ALKALINE PHOSPHATASE 46 U/L (45-117); BUN 6 mg/dl (7-24); CHLORIDE 112 mmol/L (98-107); CREATININE 0.66 mg/dL (0.55-1.02); FREE T4 0.96 ng/dl (0.76-1.46); PHOSPHOROUS 2.9 mg/dL (2.5-4.9); POTASSIUM 3.7 mmol/L (3.5-5.1); SGOT/AST 12 IU/L (3-35); SGPT/ALT 21 U/L (12-78); SODIUM 144 mmol/L (136-145); TOTAL PROTEIN 6.2 gm/dL (6.4-8.2)
[2018-02-22 09:02] LABS: VITAMIN D, 25-HYDROXY 19.8 ng/mL (30-100)
[2018-02-22] MEDS ORDERED: VITAMIN D-32000 UNI1 PO (11:28)
== END 2018-02-22 13:15 | disposition home or self-care (01) | DRG 641 ==
LOC: ED 08:16 → EDHOLD 11:10 → 4E 11:19
PROVIDERS: Family Medicine; Student in an Organized Health Care Education/Training Program
DX: E86.0 Dehydration (principal); E83.51 Hypocalcemia; D72.820 Lymphocytosis (symptomatic); N93.9 Abnormal uterine and vaginal bleeding, unspecified; R31.0 Gross hematuria; R42 Dizziness and giddiness; F41.8 Other specified anxiety disorders; E66.09 Other obesity due to excess calories; F41.0 Panic disorder [episodic paroxysmal anxiety]; Z68.32 Body mass index [BMI] 32.0-32.9, adult; Z98.51 Tubal ligation status; Z83.3 Family history of diabetes mellitus; Z82.49 Family history of ischemic heart disease and other diseases of the circulatory system; Z82.3 Family history of stroke; Z79.899 Other long term (current) drug therapy

== ENCOUNTER 2018-03-18 07:22 | Emergency (ER) | payer OTHER ==
[~2018-03-18] VITALS: Ht 170.1 cm; Wt 90.7 kg
[~2018-03-18 07:22] MED LIST changes: +VITAMIN D-32000 UNI1 PO
[2018-03-18 08:20] LABS: BILIRUBIN NEGATIVE (NEGATIVE); BLOOD 3+ (NEGATIVE); CLARITY SL CLOUDY (CLEAR); COLOR STRAW (YELLOW); GLUCOSE NEGATIVE (NEGATIVE); KETONE NEGATIVE (NEGATIVE); LEUKO ESTERASE 1+ (NEGATIVE); NITRITE NEGATIVE (NEGATIVE); PH 6.5 (5.0-9.0); SPECIFIC GRAVITY <= 1.005 (1.005-1.030); UROBILINOGEN 0.2 E.U./dl (0.2-1.0)
[2018-03-18 08:28] LABS: BASO % 0.3 % (0.0-1.0); EOS # 0.1 10*3/uL (0.0-0.4); EOS % 1.4 % (1.0-4.0); HEMATOCRIT 41.9 % (37.0-47.0); HEMOGLOBIN 13.9 g/dl (12.0-16.0); LYMPH # 1.9 10*3/uL (1.3-4.4); LYMPH % 33.7 % (27.0-41.0); MEAN CELL VOLUME 89.1 fl (81.0-99.0); MEAN CORPUSCULAR HGB 29.6 pg (27.0-31.0); MEAN CORPUSCULAR HGB CONC 33.2 g/dl (33.0-37.0); MEAN PLATELET VOLUME 10.7 fl (9.6-12.3); MONO # 0.4 10*3/uL (0.1-1.0); MONO % 6.3 % (3.0-9.0); NEUT # 3.3 10*3/uL (2.3-7.9); NEUT % 58.1 % (47.0-73.0); PLATELET COUNT AUTOMATED 208 10*3/uL (130-400); RED CELL DISTRI WIDTH 13.1 % (0-14.5); WHITE BLOOD COUNT 5.7 10*3/uL (4.8-10.8)
[2018-03-18 08:33] LABS: BACTERIA 2+; EPITHELIAL CELLS 21-30; RBC TNTC rbc/hpf (0-2); WBC 21-30 wbc/hpf (0-5)
[2018-03-18 08:48] LABS: ALBUMIN 3.8 gm/dl (3.1-4.5); BUN 9 mg/dl (7-24); CHLORIDE 109 mmol/L (98-107); CREATININE 0.75 mg/dL (0.55-1.02); LIPASE 92 U/L (73-393); POTASSIUM 3.7 mmol/L (3.5-5.1); SGOT/AST 14 IU/L (3-35); SGPT/ALT 24 U/L (12-78); SODIUM 142 mmol/L (136-145); TOTAL PROTEIN 7.7 gm/dL (6.4-8.2)
[2018-03-18 08:49] LABS: ALKALINE PHOSPHATASE 63 U/L (45-117)
[2018-03-18 08:50] LABS: BETA-HCG, QUANT < 1.0 mIU/mL (1-3)
[2018-03-18] MEDS ORDERED: ZOFRAN ODT4 MG SL (09:51)
[2018-03-18] MEDS ORDERED: Meclizine25 MG PO (09:51)
== END 2018-03-18 10:10 | disposition home or self-care (01) ==
LOC: ED 07:22
PROVIDERS: Emergency Medicine
DX: R42 Dizziness and giddiness (principal); Z79.899 Other long term (current) drug therapy

== ENCOUNTER 2018-07-01 12:34 | Emergency (ER) | payer OTHER ==
[~2018-07-01] VITALS: Ht 170.1 cm; Wt 90.7 kg
[~2018-07-01 12:34] MED LIST changes: +Meclizine25 MG PO; +ZOFRAN ODT4 MG SL
[2018-07-01 13:09] LABS: BILIRUBIN NEGATIVE (NEGATIVE); BLOOD NEGATIVE (NEGATIVE); CLARITY CLEAR (CLEAR); COLOR STRAW (YELLOW); GLUCOSE NEGATIVE (NEGATIVE); KETONE NEGATIVE (NEGATIVE); LEUKO ESTERASE NEGATIVE (NEGATIVE); NITRITE NEGATIVE (NEGATIVE); SPECIFIC GRAVITY <= 1.005 (1.005-1.030); UROBILINOGEN 0.2 E.U./dl (0.2-1.0)
[2018-07-01 13:11] LABS: BASO % 0.2 % (0.0-1.0); EOS % 0.7 % (1.0-4.0); HEMATOCRIT 38.6 % (37.0-47.0); HEMOGLOBIN 12.9 g/dl (12.0-16.0); LYMPH # 2.4 10*3/uL (1.3-4.4); LYMPH % 38.4 % (27.0-41.0); MEAN CELL VOLUME 88.5 fl (81.0-99.0); MEAN CORPUSCULAR HGB 29.6 pg (27.0-31.0); MEAN CORPUSCULAR HGB CONC 33.4 g/dl (33.0-37.0); MEAN PLATELET VOLUME 10.9 fl (9.6-12.3); MONO # 0.5 10*3/uL (0.1-1.0); MONO % 7.5 % (3.0-9.0); NEUT # 3.3 10*3/uL (2.3-7.9); NEUT % 53.2 % (47.0-73.0); PLATELET COUNT AUTOMATED 190 10*3/uL (130-400); RED BLOOD COUNT 4.36 10*6/uL (4.10-5.10); RED CELL DISTRI WIDTH 12.7 % (0-14.5); WHITE BLOOD COUNT 6.2 10*3/uL (4.8-10.8)
[2018-07-01 13:20] LABS: RBC 0-2 rbc/hpf (0-2); WBC 0-2 wbc/hpf (0-5)
[2018-07-01 13:27] LABS: ALBUMIN 3.5 gm/dl (3.1-4.5); ALKALINE PHOSPHATASE 56 U/L (45-117); BUN 9 mg/dl (7-24); CHLORIDE 108 mmol/L (98-107); CREATININE 0.77 mg/dL (0.55-1.02); LIPASE 113 U/L (73-393); POTASSIUM 3.7 mmol/L (3.5-5.1); SGOT/AST 16 IU/L (3-35); SGPT/ALT 24 U/L (12-78); SODIUM 142 mmol/L (136-145); TOTAL PROTEIN 7.5 gm/dL (6.4-8.2)
[2018-07-01] MEDS ORDERED: Zofran4 MG SL (13:31)
== END 2018-07-01 13:45 | disposition home or self-care (01) ==
LOC: ED 12:34
PROVIDERS: Nurse Practitioner Family
DX: K29.70 Gastritis, unspecified, without bleeding (principal); Z79.899 Other long term (current) drug therapy

== ENCOUNTER 2019-12-07 13:20 | Emergency (ER) | payer OTHER ==
[~2019-12-07] VITALS: Wt 97.5 kg
== END 2019-12-07 15:05 | disposition home or self-care (01) ==
LOC: ED 13:20
DX: S60.454A Superficial foreign body of right ring finger, initial encounter (principal); F41.9 Anxiety disorder, unspecified; W22.8XXA Striking against or struck by other objects, initial encounter; Y93.89 Activity, other specified; Y92.89 Other specified places as the place of occurrence of the external cause; Y99.8 Other external cause status

== ENCOUNTER 2020-08-19 13:22 | Emergency (ER) | payer OTHER ==
[~2020-08-19] VITALS: Ht 170.1 cm; Wt 113.4 kg
[2020-08-19] MEDS ORDERED: OMNICEF300 MG PO ×2 (14:07)
== END 2020-08-19 14:09 | disposition home or self-care (01) ==
LOC: ED 13:22
DX: H66.92 Otitis media, unspecified, left ear (principal); Z79.899 Other long term (current) drug therapy

== ENCOUNTER 2020-09-10 16:41 | Emergency (ER) | payer OTHER ==
[~2020-09-10] VITALS: Ht 170.1 cm; Wt 117.9 kg
[2020-09-10 17:56] LABS: BASO % 0.3 % (0.0-1.0); EOS % 0.5 % (1.0-4.0); HEMATOCRIT 38.4 % (37.0-47.0); LYMPH # 2.1 10*3/uL (1.3-4.4); LYMPH % 26.4 % (27.0-41.0); MEAN CELL VOLUME 89.9 fl (81.0-99.0); MEAN CORPUSCULAR HGB 29.5 pg (27.0-31.0); MEAN CORPUSCULAR HGB CONC 32.8 g/dl (33.0-37.0); MEAN PLATELET VOLUME 10.6 fl (9.6-12.3); MONO # 0.7 10*3/uL (0.1-1.0); MONO % 8.7 % (3.0-9.0); NEUT # 5.1 10*3/uL (2.3-7.9); PLATELET COUNT AUTOMATED 235 10*3/uL (130-400); RED BLOOD COUNT 4.27 10*6/uL (4.10-5.10); RED CELL DISTRI WIDTH 12.5 % (0-14.5)
[2020-09-10 18:11] LABS: ALBUMIN 3.4 gm/dl (3.1-4.5); ALKALINE PHOSPHATASE 61 U/L (45-117); BUN 9 mg/dl (7-24); CHLORIDE 108 mmol/L (98-107); CREATININE 0.76 mg/dL (0.55-1.02); POTASSIUM 3.9 mmol/L (3.5-5.1); SGOT/AST 14 IU/L (3-35); SGPT/ALT 25 U/L (12-78); SODIUM 139 mmol/L (136-145); TOTAL PROTEIN 7.3 gm/dL (6.4-8.2)
[2020-09-10 18:50] LABS: BILIRUBIN Negative (Negative); BLOOD Trace-Lysed (Negative); CLARITY Clear (Clear); COLOR Yellow (Yellow); GLUCOSE Negative (Negative); KETONE Negative (Negative); LEUKO ESTERASE Negative (Negative); NITRITE Negative (Negative); SPECIFIC GRAVITY <= 1.005 (1.001-1.030); UROBILINOGEN 0.2 E.U./dl (0.0-1.0)
[2020-09-10 18:57] LABS: BACTERIA 1+; EPITHELIAL CELLS 0-2; WBC 0-2 wbc/hpf (0-5)
== END 2020-09-10 20:13 | disposition home or self-care (01) ==
LOC: ED 16:41
PROVIDERS: Nurse Practitioner Family
DX: A08.4 Viral intestinal infection, unspecified (principal); H60.502 Unspecified acute noninfective otitis externa, left ear; Z79.899 Other long term (current) drug therapy

== ENCOUNTER 2020-10-07 10:11 | Emergency (ER) | payer OTHER ==
[2020-10-07 11:05] LABS: BASO % 0.2 % (0.0-1.0); EOS % 0.6 % (1.0-4.0); HEMATOCRIT 39.1 % (37.0-47.0); LYMPH # 1.6 10*3/uL (1.3-4.4); LYMPH % 32.9 % (27.0-41.0); MEAN CELL VOLUME 90.3 fl (81.0-99.0); MEAN CORPUSCULAR HGB 29.1 pg (27.0-31.0); MEAN CORPUSCULAR HGB CONC 32.2 g/dl (33.0-37.0); MEAN PLATELET VOLUME 10.8 fl (9.6-12.3); MONO # 0.4 10*3/uL (0.1-1.0); MONO % 7.7 % (3.0-9.0); NEUT # 2.9 10*3/uL (2.3-7.9); NEUT % 58.4 % (47.0-73.0); PLATELET COUNT AUTOMATED 210 10*3/uL (130-400); RED BLOOD COUNT 4.33 10*6/uL (4.10-5.10); RED CELL DISTRI WIDTH 12.6 % (0-14.5)
[2020-10-07 11:20] LABS: ACT PARTIAL THROMBO TIME 27.4 SECONDS (20.0-32.1)
[2020-10-07 11:21] LABS: ALBUMIN 3.3 gm/dl (3.1-4.5); ALKALINE PHOSPHATASE 54 U/L (45-117); BUN 5 mg/dl (7-24); CHLORIDE 112 mmol/L (98-107); CREATININE 0.78 mg/dL (0.55-1.02); LIPASE 46 U/L (73-393); POTASSIUM 3.4 mmol/L (3.5-5.1); SGOT/AST 12 IU/L (3-35); SGPT/ALT 27 U/L (12-78); SODIUM 141 mmol/L (136-145)
[2020-10-07 11:22] LABS: TROPONIN I < 0.015 ng/ml (<0.045)
[2020-10-07 11:31] LABS: BILIRUBIN Negative (Negative); BLOOD 2+ (Negative); CLARITY Clear (Clear); COLOR Yellow (Yellow); GLUCOSE Negative (Negative); KETONE Negative (Negative); LEUKO ESTERASE Negative (Negative); NITRITE Negative (Negative); SPECIFIC GRAVITY <= 1.005 (1.001-1.030); UROBILINOGEN 0.2 E.U./dl (0.0-1.0)
[2020-10-07 11:47] LABS: WBC 0-2 wbc/hpf (0-5)
[2020-10-07] MEDS ORDERED: GOOD NEIGHBOR M25 MG PO (14:18)
[2020-10-07] MEDS ORDERED: AMOXICILLIN500 M2 PO (14:18)
== END 2020-10-07 14:32 | disposition home or self-care (01) ==
LOC: ED 10:11
PROVIDERS: Physician Assistant
DX: R42 Dizziness and giddiness (principal); R11.0 Nausea; H66.92 Otitis media, unspecified, left ear; R79.1 Abnormal coagulation profile; Z79.899 Other long term (current) drug therapy

== ENCOUNTER 2020-10-22 22:43 | Emergency (ER) | payer OTHER ==
[~2020-10-22] VITALS: Ht 170.1 cm; Wt 112.9 kg
[~2020-10-22 22:43] MED LIST changes: +GOOD NEIGHBOR M25 MG PO
[2020-10-22 23:03] LABS: BASO % 0.1 % (0.0-1.0); EOS # 0.1 10*3/uL (0.0-0.4); EOS % 1.6 % (1.0-4.0); HEMATOCRIT 38.9 % (37.0-47.0); LYMPH # 3.3 10*3/uL (1.3-4.4); LYMPH % 40.9 % (27.0-41.0); MEAN CELL VOLUME 89.6 fl (81.0-99.0); MEAN CORPUSCULAR HGB 28.6 pg (27.0-31.0); MEAN CORPUSCULAR HGB CONC 31.9 g/dl (33.0-37.0); MEAN PLATELET VOLUME 10.5 fl (9.6-12.3); MONO # 0.6 10*3/uL (0.1-1.0); MONO % 6.9 % (3.0-9.0); NEUT # 4.1 10*3/uL (2.3-7.9); NEUT % 50.4 % (47.0-73.0); PLATELET COUNT AUTOMATED 196 10*3/uL (130-400); RED BLOOD COUNT 4.34 10*6/uL (4.10-5.10); RED CELL DISTRI WIDTH 12.7 % (0-14.5); WHITE BLOOD COUNT 8.2 10*3/uL (4.8-10.8)
[2020-10-22 23:16] LABS: BUN 9 mg/dl (7-24); CHLORIDE 110 mmol/L (98-107); CREATININE 0.91 mg/dL (0.55-1.02); POTASSIUM 3.4 mmol/L (3.5-5.1); SODIUM 141 mmol/L (136-145)
== END 2020-10-23 00:02 | disposition home or self-care (01) ==
LOC: ED 22:43
PROVIDERS: Internal Medicine
DX: E87.6 Hypokalemia (principal); F41.9 Anxiety disorder, unspecified; Z79.2 Long term (current) use of antibiotics; Z79.899 Other long term (current) drug therapy; Z98.890 Other specified postprocedural states; Z96.22 Myringotomy tube(s) status; Z98.51 Tubal ligation status

== ENCOUNTER 2020-11-03 11:46 | Emergency (ER) | payer OTHER ==
[~2020-11-03] VITALS: Ht 170.1 cm; Wt 108.9 kg
[2020-11-03 12:24] LABS: BASO % 0.3 % (0.0-1.0); EOS # 0.1 10*3/uL (0.0-0.4); HEMATOCRIT 39.9 % (37.0-47.0); LYMPH # 2.7 10*3/uL (1.3-4.4); LYMPH % 33.9 % (27.0-41.0); MEAN CELL VOLUME 88.1 fl (81.0-99.0); MEAN CORPUSCULAR HGB 29.4 pg (27.0-31.0); MEAN CORPUSCULAR HGB CONC 33.3 g/dl (33.0-37.0); MEAN PLATELET VOLUME 10.7 fl (9.6-12.3); MONO # 0.7 10*3/uL (0.1-1.0); MONO % 8.3 % (3.0-9.0); NEUT # 4.5 10*3/uL (2.3-7.9); NEUT % 56.2 % (47.0-73.0); PLATELET COUNT AUTOMATED 223 10*3/uL (130-400); RED BLOOD COUNT 4.53 10*6/uL (4.10-5.10); RED CELL DISTRI WIDTH 12.6 % (0-14.5)
[2020-11-03 12:41] LABS: ALBUMIN 3.5 gm/dl (3.1-4.5); ALKALINE PHOSPHATASE 60 U/L (45-117); BUN 5 mg/dl (7-24); CHLORIDE 110 mmol/L (98-107); CREATININE 0.86 mg/dL (0.55-1.02); POTASSIUM 3.3 mmol/L (3.5-5.1); SGOT/AST 14 IU/L (3-35); SGPT/ALT 25 U/L (12-78); SODIUM 141 mmol/L (136-145); TOTAL PROTEIN 7.3 gm/dL (6.4-8.2)
[2020-11-03 12:45] LABS: TROPONIN I < 0.015 ng/ml (<0.045)
== END 2020-11-03 13:35 | disposition home or self-care (01) ==
LOC: ED 11:46
PROVIDERS: Nurse Practitioner Family
DX: F41.9 Anxiety disorder, unspecified (principal); R06.02 Shortness of breath; Z79.899 Other long term (current) drug therapy

== ENCOUNTER 2021-03-03 10:35 | Emergency (ER) | payer OTHER ==
[~2021-03-03] VITALS: Wt 108.9 kg
[2021-03-03 11:22] LABS: BASO % 0.3 % (0.0-1.0); EOS # 0.2 10*3/uL (0.0-0.4); EOS % 2.2 % (1.0-4.0); HEMATOCRIT 40.5 % (37.0-47.0); LYMPH # 2.6 10*3/uL (1.3-4.4); LYMPH % 36.7 % (27.0-41.0); MEAN CORPUSCULAR HGB 29.1 pg (27.0-31.0); MEAN CORPUSCULAR HGB CONC 33.1 g/dl (33.0-37.0); MEAN PLATELET VOLUME 10.3 fl (9.6-12.3); MONO # 0.5 10*3/uL (0.1-1.0); NEUT # 3.9 10*3/uL (2.3-7.9); NEUT % 53.7 % (47.0-73.0); PLATELET COUNT AUTOMATED 248 10*3/uL (130-400); RED CELL DISTRI WIDTH 12.5 % (0-14.5); WHITE BLOOD COUNT 7.2 10*3/uL (4.8-10.8)
[2021-03-03 11:40] LABS: ALBUMIN 3.2 gm/dl (3.1-4.5); ALKALINE PHOSPHATASE 77 U/L (45-117); BUN 6 mg/dl (7-24); CHLORIDE 109 mmol/L (98-107); CREATININE 0.88 mg/dL (0.55-1.02); POTASSIUM 3.5 mmol/L (3.5-5.1); SGOT/AST 11 IU/L (3-35); SGPT/ALT 23 U/L (12-78); SODIUM 141 mmol/L (136-145); TOTAL PROTEIN 7.6 gm/dL (6.4-8.2)
[2021-03-03 12:07] LABS: BILIRUBIN Negative (Negative); BLOOD Negative (Negative); CLARITY Clear (Clear); COLOR Yellow (Yellow); GLUCOSE Negative (Negative); KETONE Negative (Negative); LEUKO ESTERASE Negative (Negative); NITRITE Negative (Negative); SPECIFIC GRAVITY <= 1.005 (1.001-1.030); UROBILINOGEN 0.2 E.U./dl (0.0-1.0)
[2021-03-03 12:15] LABS: BACTERIA TRACE; CALCIUM OXALATE CRYSTALS 2+
[2021-03-03] MEDS ORDERED: FLONASE ALLERG9.9 ML NAS (12:57)
== END 2021-03-03 13:02 | disposition home or self-care (01) ==
LOC: ED 10:35
PROVIDERS: Emergency Medicine
DX: J31.0 Chronic rhinitis (principal); Z20.822 Contact with and (suspected) exposure to COVID-19; E66.9 Obesity, unspecified; Z79.899 Other long term (current) drug therapy

== ENCOUNTER → 2022-08-08 | Outpatient (CLI) | payer OTHER ==
[~2022-08-08] MED LIST changes: +FLONASE ALLERG9.9 ML NAS
== END | disposition home or self-care (01) ==
LOC: RAD 11:47
PROVIDERS: ATTEND Internal Medicine Nephrology
DX: M54.50 Low back pain, unspecified (principal)

== ENCOUNTER 2023-02-15 12:34 | Emergency (ER) | payer OTHER ==
[~2023-02-15] VITALS: Ht 170.1 cm; Wt 123.8 kg
[2023-02-15 13:08] LABS: BASO % 0.3 % (0.0-1.0); EOS # 0.1 10*3/uL (0.0-0.4); HEMATOCRIT 38.2 % (37.0-47.0); LYMPH # 3.6 10*3/uL (1.3-4.4); LYMPH % 40.7 % (27.0-41.0); MEAN CELL VOLUME 87.8 fl (81.0-99.0); MEAN PLATELET VOLUME 10.3 fl (9.6-12.3); MONO # 0.7 10*3/uL (0.1-1.0); MONO % 7.8 % (3.0-9.0); NEUT # 4.4 10*3/uL (2.3-7.9); NEUT % 49.9 % (47.0-73.0); PLATELET COUNT AUTOMATED 241 10*3/uL (130-400); RED BLOOD COUNT 4.35 10*6/uL (4.10-5.10); RED CELL DISTRI WIDTH 13.2 % (0-14.5); WHITE BLOOD COUNT 8.8 10*3/uL (4.8-10.8)
[2023-02-15 13:20] LABS: ACT PARTIAL THROMBO TIME 27.6 SECONDS (20.0-32.1)
[2023-02-15 13:34] LABS: BILIRUBIN Negative (Negative); BLOOD Negative (Negative); CLARITY Clear (Clear); COLOR Yellow (Yellow); GLUCOSE Negative (Negative); KETONE Negative (Negative); LEUKO ESTERASE Trace (Negative); NITRITE Negative (Negative); PH 6.5 (4.5-8.0); SPECIFIC GRAVITY <= 1.005 (1.001-1.030); UROBILINOGEN 0.2 E.U./dl (0.0-1.0)
[2023-02-15 13:36] LABS: ALKALINE PHOSPHATASE 56 U/L (46-116); BUN 6 mg/dl (9-23); CHLORIDE 107 mmol/L (98-107); POTASSIUM 3.4 mmol/L (3.4-5.1); SGPT/ALT 28 U/L (10-49)
[2023-02-15 13:42] LABS: BACTERIA 2+; RBC 0-2 rbc/hpf (0-2)
== END 2023-02-15 15:24 | disposition home or self-care (01) ==
LOC: ED 12:34
PROVIDERS: Nurse Practitioner Family
DX: R00.2 Palpitations (principal); R35.0 Frequency of micturition; Z79.899 Other long term (current) drug therapy; Z98.890 Other specified postprocedural states; Z98.51 Tubal ligation status